=== PATIENT | female | born 1935 | race Caucasian/White ===

== ENCOUNTER 2017-08-26 13:35 | Emergency (ER) | payer MEDICARE, OTHER, MEDICAID ==
[2017-08-26 14:06] LABS: ADD MAN DIFF? NO
[2017-08-26 14:10] LABS: BASOPHILS % 0.4 % (0.0-2.0); EOSINOPHILS # 0.1 10^3/ul (0.0-0.5); EOSINOPHILS % 1.7 % (0.0-7.0); HEMATOCRIT 31.8 % (37.0-47.0); HEMOGLOBIN 10.4 g/dl (12.0-16.0); LYMPHOCYTES % 14.8 % (15.0-51.0); MEAN CORPUSCULAR HEMOGLOBIN 31.1 pg (29.0-33.0); MEAN CORPUSCULAR HGB CONC 32.7 g/dl (32.0-37.0); MEAN CORPUSCULAR VOLUME 95.2 fl (82.0-101.0); MEAN PLATELET VOLUME 11.6 fl (7.4-10.4); MONOCYTE # 0.9 10^3/ul (0.3-0.9); MONOCYTES % 13.6 % (0.0-11.0); NEUTROPHIL # 4.8 10^3/ul (1.6-7.5); NEUTROPHILS % 69.1 % (39.0-77.0); PLATELET COUNT 165 10^3/UL (140-415); RED BLOOD COUNT 3.34 10^6/ul (4.20-5.40); RED CELL DISTRIBUTION WIDTH 14.6 % (11.5-14.5)
[2017-08-26 14:10] LABS: WHITE BLOOD COUNT 6.9 10^3/ul (4.8-10.8)
[2017-08-26 14:30] LABS: ANION GAP 19 (8-16); BLOOD UREA NITROGEN 31 mg/dl (7-20); CALCIUM 8.4 mg/dl (8.4-10.2); CARBON DIOXIDE 32 mmol/L (21-31); CHLORIDE 94 mmol/L (97-110); CREATININE 3.24 mg/dl (0.44-1.00); GLUCOSE 333 mg/dl (70-220); INR 0.93; POTASSIUM 3.8 mmol/L (3.5-5.1); PROTIME 12.6 Sec (11.9-14.9); SODIUM 141 mmol/L (135-144)
[2017-08-26 14:31] LABS: PARTIAL THROMBOPLASTIN TIME 28.9 Sec (25.0-35.0)
[2017-08-26 14:39] LABS: TROPONIN-I 0.018 ng/ml (0.00-0.12)
== END 2017-08-26 17:18 | disposition home or self-care (01) ==
LOC: E/R 13:35
DX: R58 Hemorrhage, not elsewhere classified (principal); I10 Essential (primary) hypertension; E11.9 Type 2 diabetes mellitus without complications; Z79.4 Long term (current) use of insulin; Z79.82 Long term (current) use of aspirin
CPT/HCPCS: 36415; 71045; 80048; 84484; 85025; 85610; 85730; 86850; 86900; 86901; 93005; 99285-25

== ENCOUNTER 2018-10-23 11:37 | Inpatient (IN) | payer MEDICARE, OTHER ==
[2018-10-23 12:22] LABS: ADD MAN DIFF? NO
[2018-10-23] MEDS: SOD CHLORIDE 0.9% 500 ML IV (12:27)
[2018-10-23] MEDS: ONDANSETRON 4 MG INJ IV ×2 (12:27→15:01)
[2018-10-23 12:29] LABS: WHITE BLOOD COUNT 12.7 10^3/ul (4.8-10.8)
[2018-10-23 12:29] LABS: BASOPHIL # 0.1 10^3/ul (0.0-0.1); BASOPHILS % 0.6 % (0.0-2.0); EOSINOPHILS # 0.1 10^3/ul (0.0-0.5); EOSINOPHILS % 0.6 % (0.0-7.0); HEMATOCRIT 34.1 % (37.0-47.0); HEMOGLOBIN 10.4 g/dl (12.0-16.0); LYMPHOCYTES % 7.5 % (15.0-51.0); MEAN CORPUSCULAR HEMOGLOBIN 28.7 pg (29.0-33.0); MEAN CORPUSCULAR HGB CONC 30.5 g/dl (32.0-37.0); MEAN CORPUSCULAR VOLUME 93.9 fl (82.0-101.0); MEAN PLATELET VOLUME 10.4 fl (7.4-10.4); MONOCYTE # 1.3 10^3/ul (0.3-0.9); MONOCYTES % 10.3 % (0.0-11.0); NEUTROPHIL # 10.2 10^3/ul (1.6-7.5); NEUTROPHILS % 80.4 % (39.0-77.0); PLATELET COUNT 339 10^3/UL (140-415); RED BLOOD COUNT 3.63 10^6/ul (4.20-5.40); RED CELL DISTRIBUTION WIDTH 15.6 % (11.5-14.5)
[2018-10-23 12:47] LABS: ALANINE AMINOTRANSFERASE 16 IU/L (13-69); ALBUMIN 3.4 g/dl (3.3-4.9); ALBUMIN/GLOBULIN RATIO 0.82; ALKALINE PHOSPHATASE 73 IU/L (42-121); ASPARTATE AMINO TRANSFERASE 23 IU/L (15-46); BILIRUBIN,INDIRECT 0.3 mg/dl (0-1.1); BILIRUBIN,TOTAL 0.3 mg/dl (0.2-1.3); BLOOD UREA NITROGEN 57 mg/dl (7-20); CALCIUM 9.8 mg/dl (8.4-10.2); CHLORIDE 95 mmol/L (97-110); CREATININE 4.63 mg/dl (0.44-1.00); GLUCOSE 133 mg/dl (70-220); LIPASE 13 U/L (23-300); POTASSIUM 3.6 mmol/L (3.5-5.1); SODIUM 148 mmol/L (135-144); TOTAL PROTEIN 7.5 g/dl (6.1-8.1)
[2018-10-23 12:54] LABS: ANION GAP 15 (5-13); INR 1.04; PARTIAL THROMBOPLASTIN TIME 25.3 Sec (23.0-35.0); PROTIME 13.7 Sec (11.9-14.9); PT RATIO 1.1
[2018-10-23 13:02] LABS: CARBON DIOXIDE 38 mmol/L (21-31)
[2018-10-23] MEDS: PANTOPRAZOLE IV 80 MG in SOD CHLORIDE 0.9% 100 ML IVPB (13:13)
[2018-10-23] MEDS: PANTOPRAZOLE IV 80 MG in SOD CHLORIDE 0.9% 100 ML IV (13:13)
[2018-10-23 13:31] LABS: ADD UMIC YES; UR ASCORBIC ACID NEGATIVE (NEGATIVE); UR BACTERIA FEW /HPF (NONE SEEN); UR BILIRUBIN (Dip) 1+ mg/dL (NEGATIVE); UR BLOOD (Dip) 1+ mg/dL (NEGATIVE); UR CLARITY CLOUDY (CLEAR); UR COLOR AMBER (YELLOW); UR GLUCOSE (Dip) NEGATIVE (NEGATIVE); UR KETONES (Dip) TRACE mg/dL (NEGATIVE); UR LEUKOCYTE ESTERASE (Dip) 2+ Leu/ul (NEGATIVE); UR MUCUS FEW /HPF (NONE SEEN); UR NITRITE (Dip) NEGATIVE (NEGATIVE); UR RBC 1 /HPF (0-5); UR SPECIFIC GRAVITY (Dip) 1.018 (1.003-1.030); UR SQUAMOUS EPITHELIAL CELL FEW /HPF (FEW); UR TOTAL PROTEIN (Dip) 3+ mg/dl (NEGATIVE); UR UROBILINOGEN (Dip) 2+ mg/dL (NEGATIVE); UR WBC 90 /HPF (0-5)
[2018-10-23] MEDS: CEFEPIME 1GM/50 ML (PMX) 50 ML IVPB (13:59)
[2018-10-23] MEDS ORDERED: ACETAMINOPHEN 325 MG TAB PO (14:30)
[2018-10-23] MEDS ORDERED: ONDANSETRON 4 MG INJ IV ×2 (14:30→16:30)
[2018-10-23] MEDS: morphine 4 MG/ML VIAL IV (15:00)
[2018-10-23] MEDS: SOD CHLORIDE 0.9% 1,000 ML IV (16:03)
[2018-10-23] MEDS ORDERED: DEXTROSE 50% 50 ML SYRINGE IV ×2 (17:00)
[2018-10-23] MEDS ORDERED: GLUCAGON 1 MG INJ IM (17:00)
[2018-10-23] MEDS ORDERED: GLUCOSE GEL 15 GRAM TUBE PO ×2 (17:00)
[2018-10-23] MEDS ORDERED: GLUCOSE GEL 15 GRAM TUBE BUCCAL (17:00)
[2018-10-23] MEDS: INSULIN ASPART [NOVOLOG] 3 ML PEN SC ×2 (18:00→21:00)
[2018-10-24] MEDS: INSULIN ASPART [NOVOLOG] 3 ML PEN SC ×6 (01:00→21:46)
[2018-10-24] MEDS: PANTOPRAZOLE 40 MG INJ IV (05:36)
[2018-10-24 07:37] LABS: WHITE BLOOD COUNT 7.9 10^3/ul (4.8-10.8)
[2018-10-24 07:37] LABS: ABNORMAL IP MESSAGE 1; HEMATOCRIT 31.1 % (37.0-47.0); HEMOGLOBIN 9.2 g/dl (12.0-16.0); MEAN CORPUSCULAR HEMOGLOBIN 28.4 pg (29.0-33.0); MEAN CORPUSCULAR HGB CONC 29.6 g/dl (32.0-37.0); MEAN PLATELET VOLUME 10.4 fl (7.4-10.4); PLATELET COUNT 239 10^3/UL (140-415); RED BLOOD COUNT 3.24 10^6/ul (4.20-5.40); RED CELL DISTRIBUTION WIDTH 15.9 % (11.5-14.5)
[2018-10-24 07:43] LABS: ADD MAN DIFF? YES; POSITIVE DIFF @See below
[2018-10-24] MEDS ORDERED: PROPOFOL 20 ML (07:58)
[2018-10-24 07:59] LABS: ALANINE AMINOTRANSFERASE 25 IU/L (13-69); ALBUMIN/GLOBULIN RATIO 0.85; ALKALINE PHOSPHATASE 56 IU/L (42-121); ANION GAP 18 (5-13); ASPARTATE AMINO TRANSFERASE 24 IU/L (15-46); BILIRUBIN,INDIRECT 0.2 mg/dl (0-1.1); BILIRUBIN,TOTAL 0.2 mg/dl (0.2-1.3); BLOOD UREA NITROGEN 73 mg/dl (7-20); CALCIUM 8.5 mg/dl (8.4-10.2); CARBON DIOXIDE 28 mmol/L (21-31); CHLORIDE 102 mmol/L (97-110); CREATININE 5.19 mg/dl (0.44-1.00); GLUCOSE 157 mg/dl (70-220); POTASSIUM 4.2 mmol/L (3.5-5.1); SODIUM 148 mmol/L (135-144); TOTAL PROTEIN 6.5 g/dl (6.1-8.1)
[2018-10-24] MEDS ORDERED: LIDOCAINE 2% (SDV) 5 ML INJ (08:19)
[2018-10-24 10:14] LABS: ANISOCYTOSIS 1+ (0-0); BAND NEUTROPHILS #M 2.6 10^3/ul (0.0-0.6); BAND NEUTROPHILS % (M) 34 % (0-4); EOSINOPHILS % (M) 3 % (0-7); GIANT THROMBO% (M) 2 % (0-0); LYMPHOCYTES #M 0.6 10^3/ul (0.8-2.9); LYMPHOCYTES % (M) 8 % (15-51); MONOCYTE #M 0.4 10^3/ul (0.3-0.9); MONOCYTES % (M) 6 % (0-11); OVALOCYTES 1+ (0-0); PLATELET ESTIMATE NORMAL; PLATELET MORPHOLOGY COMMENT @See below; POIKILOCYTOSIS 1+ (0-0); POLYCHROMASIA 1+ (0-0); REACTIVE LYMPHOCYTES% (M) 1 % (0-0); SEGMENTED NEUTROPHILS (M) % 48 % (39-77); SMUDGE%M 8 % (0-0)
[2018-10-24 12:15] LABS: HEPATITIS B SURFACE ANTIGEN NEGATIVE (NEGATIVE)
[2018-10-24 12:32] LABS: HEPATITIS B SURFACE ANTIBODY POSITIVE (NEGATIVE)
[2018-10-25] MEDS: INSULIN ASPART [NOVOLOG] 3 ML PEN SC ×6 (01:00→21:15)
[2018-10-25] MEDS: PANTOPRAZOLE 40 MG INJ IV (05:22)
[2018-10-25 06:28] LABS: WHITE BLOOD COUNT 11.4 10^3/ul (4.8-10.8)
[2018-10-25 06:28] LABS: HEMATOCRIT 28.4 % (37.0-47.0); HEMOGLOBIN 8.6 g/dl (12.0-16.0); MEAN CORPUSCULAR HEMOGLOBIN 28.4 pg (29.0-33.0); MEAN CORPUSCULAR HGB CONC 30.3 g/dl (32.0-37.0); MEAN CORPUSCULAR VOLUME 93.7 fl (82.0-101.0); MEAN PLATELET VOLUME 10.6 fl (7.4-10.4); PLATELET COUNT 205 10^3/UL (140-415); RED BLOOD COUNT 3.03 10^6/ul (4.20-5.40); RED CELL DISTRIBUTION WIDTH 15.7 % (11.5-14.5)
[2018-10-25 06:52] LABS: ANION GAP 17 (5-13); BLOOD UREA NITROGEN 89 mg/dl (7-20); CALCIUM 8.1 mg/dl (8.4-10.2); CARBON DIOXIDE 29 mmol/L (21-31); CHLORIDE 99 mmol/L (97-110); CREATININE 6.15 mg/dl (0.44-1.00); GLUCOSE 179 mg/dl (70-220); MAGNESIUM 2.4 mg/dl (1.7-2.5); PHOSPHORUS 4.3 mg/dl (2.5-4.9); POTASSIUM 4.2 mmol/L (3.5-5.1); SODIUM 145 mmol/L (135-144)
[2018-10-25 07:03] LABS: ADD MAN DIFF? YES; POSITIVE DIFF @See below
[2018-10-25 07:44] LABS: ANISOCYTOSIS 1+ (0-0); BAND NEUTROPHILS #M 1.8 10^3/ul (0.0-0.6); BAND NEUTROPHILS % (M) 16 % (0-4); EOSINOPHILS % (M) 3 % (0-7); GIANT THROMBO% (M) 1 % (0-0); LYMPHOCYTES #M 1.9 10^3/ul (0.8-2.9); LYMPHOCYTES % (M) 17 % (15-51); MONOCYTE #M 0.6 10^3/ul (0.3-0.9); MONOCYTES % (M) 6 % (0-11); PLATELET ESTIMATE NORMAL; POLYCHROMASIA 1+ (0-0); SEG NEUT #M 6.8 10^3/ul (1.6-7.5); SEGMENTED NEUTROPHILS (M) % 58 % (39-77); SMUDGE%M 5 % (0-0)
[2018-10-25] MEDS: ACETAMINOPHEN 500 MG TAB PO (10:15)
[2018-10-25] MEDS: EPOETIN ALFA-EPBX (NON-ESRD 10,000 UNIT/ML VIAL SC (10:19)
[2018-10-25] MEDS: morphine 2 MG INJ IV (11:00)
[2018-10-26] MEDS: INSULIN ASPART [NOVOLOG] 3 ML PEN SC ×6 (01:00→20:23)
[2018-10-26 06:06] LABS: ADD MAN DIFF? NO
[2018-10-26 06:12] LABS: ABNORMAL IP MESSAGE 1; BASOPHIL # 0.1 10^3/ul (0.0-0.1); BASOPHILS % 0.7 % (0.0-2.0); EOSINOPHILS # 0.2 10^3/ul (0.0-0.5); EOSINOPHILS % 1.5 % (0.0-7.0); HEMATOCRIT 30.6 % (37.0-47.0); HEMOGLOBIN 9.3 g/dl (12.0-16.0); LYMPHOCYTES # 1.3 10^3/ul (0.8-2.9); MEAN CORPUSCULAR HEMOGLOBIN 29.2 pg (29.0-33.0); MEAN CORPUSCULAR HGB CONC 30.4 g/dl (32.0-37.0); MEAN CORPUSCULAR VOLUME 95.9 fl (82.0-101.0); MEAN PLATELET VOLUME 11.4 fl (7.4-10.4); MONOCYTE # 0.9 10^3/ul (0.3-0.9); NEUTROPHIL # 7.1 10^3/ul (1.6-7.5); NEUTROPHILS % 71.1 % (39.0-77.0); RED BLOOD COUNT 3.19 10^6/ul (4.20-5.40); RED CELL DISTRIBUTION WIDTH 15.9 % (11.5-14.5)
[2018-10-26 06:31] LABS: ANION GAP 10 (5-13); BLOOD UREA NITROGEN 45 mg/dl (7-20); CARBON DIOXIDE 27 mmol/L (21-31); CHLORIDE 102 mmol/L (97-110); GLUCOSE 169 mg/dl (70-220); MAGNESIUM 2.1 mg/dl (1.7-2.5); PHOSPHORUS 3.6 mg/dl (2.5-4.9); POTASSIUM 4.5 mmol/L (3.5-5.1); SODIUM 139 mmol/L (135-144)
[2018-10-26 07:05] LABS: POSITIVE DIFF @See below
[2018-10-26 07:13] LABS: PLATELET COUNT 143 10^3/UL (140-415)
[2018-10-26] MEDS: PANTOPRAZOLE 40 MG INJ IV ×2 (09:05→20:06)
[2018-10-26] MEDS: MAGNESIUM HYDROXIDE 30ML CUP PO (09:06)
[2018-10-26] MEDS: POLYETHYLENE GLYCOL 17 GM PACKET PO (09:06)
[2018-10-26] MEDS: DOCUSATE SODIUM 100 MG CAP PO (09:06)
[2018-10-26 17:08] LABS: CREATINE KINASE 323 IU/L (23-200)
[2018-10-26 17:21] LABS: CK INDEX 0.4; CK-MB 1.18 ng/ml (0.0-2.4)
[2018-10-26 17:25] LABS: TROPONIN-I 0.147 ng/ml (0.000-0.120)
[2018-10-26] MEDS: METOPROLOL 25 MG TAB PO (20:06)
[2018-10-27 01:24] LABS: CREATINE KINASE 232 IU/L (23-200)
[2018-10-27 01:34] LABS: CK INDEX 0.4; CK-MB 0.85 ng/ml (0.0-2.4)
[2018-10-27 01:38] LABS: TROPONIN-I 0.145 ng/ml (0.000-0.120)
[2018-10-27] MEDS: ACCU-CHEK XX (02:00)
[2018-10-27 07:19] LABS: CK-MB 0.73 ng/ml (0.0-2.4)
[2018-10-27 07:22] LABS: TROPONIN-I 0.135 ng/ml (0.000-0.120)
[2018-10-27 07:23] LABS: CK INDEX 0.4; CREATINE KINASE 186 IU/L (23-200)
[2018-10-27 07:32] LABS: CHOL/HDL RATIO 8.3 RATIO; HDL CHOLESTEROL 13 mg/dl (33-92); LDL CHOLESTEROL,CALCULATED 37 mg/dl; TRIGLYCERIDES 292 mg/dl (0-149)
[2018-10-27 07:32] LABS: CHOLESTEROL 108 mg/dl (100-200)
[2018-10-27] MEDS: PANTOPRAZOLE 40 MG INJ IV ×2 (08:43→22:12)
[2018-10-27] MEDS: DOCUSATE SODIUM 100 MG CAP PO (08:43)
[2018-10-27] MEDS: POLYETHYLENE GLYCOL 17 GM PACKET PO (08:43)
[2018-10-27] MEDS: METOPROLOL 25 MG TAB PO ×2 (08:43→21:00)
[2018-10-27] MEDS: INSULIN ASPART [NOVOLOG] 3 ML PEN SC ×4 (09:10→20:32)
[2018-10-27] MEDS: ACETAMINOPHEN 500 MG TAB PO ×2 (11:51→20:37)
[2018-10-27] MEDS: BISACODYL (EC) 5 MG TAB PO (11:51)
[2018-10-27] MEDS: BALSAM PERU/CASTOR OIL 60 GM TUBE TOP (15:22)
[2018-10-28] MEDS: ACCU-CHEK XX (01:59)
[2018-10-28] MEDS: DOCUSATE SODIUM 100 MG CAP PO (08:23)
[2018-10-28] MEDS: POLYETHYLENE GLYCOL 17 GM PACKET PO (08:24)
[2018-10-28] MEDS: BALSAM PERU/CASTOR OIL 60 GM TUBE TOP (08:25)
[2018-10-28] MEDS: METOPROLOL 25 MG TAB PO ×2 (08:26→20:26)
[2018-10-28] MEDS: INSULIN ASPART [NOVOLOG] 3 ML PEN SC ×4 (08:39→20:29)
[2018-10-28] MEDS: PANTOPRAZOLE 40 MG INJ IV (10:07)
[2018-10-28] MEDS ORDERED: BETAMET NA PHOS/AC(6 MG/ML) 5ML INJ INJ (19:00)
[2018-10-28] MEDS ORDERED: BUPIVACAINE 0.5%/EPI (SDV) 30 ML INJ INJ (19:00)
[2018-10-28] MEDS: ACETAMINOPHEN 500 MG TAB PO (20:33)
[2018-10-29] MEDS: ACCU-CHEK XX (01:55)
[2018-10-29] MEDS: PANTOPRAZOLE (EC) 40 MG TAB PO ×2 (06:03→17:24)
[2018-10-29] MEDS: INSULIN ASPART [NOVOLOG] 3 ML PEN SC ×3 (08:03→17:19)
[2018-10-29] MEDS: METOPROLOL 25 MG TAB PO (10:02)
[2018-10-29] MEDS: POLYETHYLENE GLYCOL 17 GM PACKET PO (10:02)
[2018-10-29] MEDS: DOCUSATE SODIUM 100 MG CAP PO (10:02)
[2018-10-29] MEDS: LUBIPROSTONE 24 MCG CAP PO (10:11)
[2018-10-29] MEDS: BALSAM PERU/CASTOR OIL 60 GM TUBE TOP (15:15)
[2018-10-29] MEDS: EPOETIN ALFA-EPBX (NON-ESRD 10,000 UNIT/ML VIAL SC (17:24)
== END 2018-10-29 19:10 | DRG 380 ==
LOC: E/R 11:37 → TEL 14:07
PROC: 0DB68ZX Excision of Stomach, Via Natural or Artificial Opening Endoscopic, Diagnostic (ICD-10-PCS; 2018-10-24 07:30)
PROC: 5A1D70Z Performance of Urinary Filtration, Intermittent, Less than 6 Hours Per Day (ICD-10-PCS; principal; 2018-10-24 07:44)
DX: K22.11 Ulcer of esophagus with bleeding (principal); N18.6 End stage renal disease; I50.23 Acute on chronic systolic (congestive) heart failure; N39.0 Urinary tract infection, site not specified; E87.0 Hyperosmolality and hypernatremia; I13.2 Hypertensive heart and chronic kidney disease with heart failure and with stage 5 chronic kidney disease, or end stage renal disease; I47.1 Supraventricular tachycardia; D62 Acute posthemorrhagic anemia; K92.0 Hematemesis; E11.22 Type 2 diabetes mellitus with diabetic chronic kidney disease; Z99.2 Dependence on renal dialysis; E78.5 Hyperlipidemia, unspecified; E03.9 Hypothyroidism, unspecified; J44.9 Chronic obstructive pulmonary disease, unspecified; D63.1 Anemia in chronic kidney disease; I25.10 Atherosclerotic heart disease of native coronary artery without angina pectoris; Z91.81 History of falling; R32 Unspecified urinary incontinence; Z86.73 Personal history of transient ischemic attack (TIA), and cerebral infarction without residual deficits; F03.90 Unspecified dementia, unspecified severity, without behavioral disturbance, psychotic disturbance, mood disturbance, and anxiety; Z95.2 Presence of prosthetic heart valve; K29.00 Acute gastritis without bleeding; I73.9 Peripheral vascular disease, unspecified; K20.9 Esophagitis, unspecified; M17.0 Bilateral primary osteoarthritis of knee
CPT/HCPCS: 71045; 71250; 72100; 72170; 72220; 73562-50; 80048; 80053; 80061; 81001; 82550; 82553; 82962; 83690; 83735; 84100; 84443; 84484; 85025; 85610; 85730; 86706; 87040-91; 87086; 87340; 88305; 88312; 90935; 93306; 96365; 96375; 96376; 97161; 97165; 97535; 99285-25

== ENCOUNTER 2018-11-02 01:50 | Inpatient (IN) | payer MEDICARE, OTHER ==
[2018-11-02] MEDS: PANTOPRAZOLE 40 MG INJ IV (02:31)
[2018-11-02 02:33] LABS: WHITE BLOOD COUNT 26.2 10^3/ul (4.8-10.8)
[2018-11-02 02:33] LABS: ABNORMAL IP MESSAGE 1; HEMATOCRIT 30.4 % (37.0-47.0); HEMOGLOBIN 9.3 g/dl (12.0-16.0); MEAN CORPUSCULAR HGB CONC 30.6 g/dl (32.0-37.0); MEAN CORPUSCULAR VOLUME 94.7 fl (82.0-101.0); MEAN PLATELET VOLUME 10.8 fl (7.4-10.4); PLATELET COUNT 309 10^3/UL (140-415); RED BLOOD COUNT 3.21 10^6/ul (4.20-5.40); RED CELL DISTRIBUTION WIDTH 16.4 % (11.5-14.5)
[2018-11-02 02:45] LABS: POSITIVE DIFF @See below
[2018-11-02 02:46] LABS: ADD MAN DIFF? YES
[2018-11-02 02:52] LABS: PROTIME 13.3 Sec (11.9-14.9)
[2018-11-02 02:53] LABS: PARTIAL THROMBOPLASTIN TIME 25.8 Sec (23.0-35.0)
[2018-11-02 02:55] LABS: ALANINE AMINOTRANSFERASE 17 IU/L (13-69); ALBUMIN 3.4 g/dl (3.3-4.9); ALKALINE PHOSPHATASE 117 IU/L (42-121); ANION GAP 15 (5-13); ASPARTATE AMINO TRANSFERASE 34 IU/L (15-46); BILIRUBIN,INDIRECT 0.2 mg/dl (0-1.1); BILIRUBIN,TOTAL 0.2 mg/dl (0.2-1.3); BLOOD UREA NITROGEN 55 mg/dl (7-20); CALCIUM 8.7 mg/dl (8.4-10.2); CARBON DIOXIDE 33 mmol/L (21-31); CHLORIDE 92 mmol/L (97-110); CREATININE 4.33 mg/dl (0.44-1.00); GLUCOSE 226 mg/dl (70-220); POTASSIUM 4.4 mmol/L (3.5-5.1); SODIUM 140 mmol/L (135-144); TOTAL PROTEIN 7.6 g/dl (6.1-8.1)
[2018-11-02 03:07] LABS: TROPONIN-I 0.124 ng/ml (0.000-0.120)
[2018-11-02 03:24] LABS: ANISOCYTOSIS 1+ (0-0); BAND NEUTROPHILS #M 0.7 10^3/ul (0.0-0.6); BAND NEUTROPHILS % (M) 3 % (0-4); BASOPHIL #M 0.2 10^3/ul (0.0-0.0); BASOPHILS % (M) 1 % (0-2); LYMPHOCYTES #M 2.6 10^3/ul (0.8-2.9); LYMPHOCYTES % (M) 10 % (15-51); MONOCYTE #M 1.5 10^3/ul (0.3-0.9); MONOCYTES % (M) 6 % (0-11); MYELOCYTES #M 0.5 10^3/ul (0.0-0.0); MYELOCYTES % (M) 2 % (0-0); PLATELET ESTIMATE NORMAL; PLATELET MORPHOLOGY COMMENT @See below; POIKILOCYTOSIS 1+ (0-0); POLYCHROMASIA 1+ (0-0); SEG NEUT #M 20.6 10^3/ul (1.6-7.5); SEGMENTED NEUTROPHILS (M) % 78 % (39-77); SMUDGE%M 1 % (0-0)
[2018-11-02] MEDS: PIPER-TAZO 3.375 GM IV (PMX) 100 ML IVPB (04:29)
[2018-11-02] MEDS: SODIUM CHLORIDE 0.9% 1L BAG IV* (04:29)
[2018-11-02] MEDS: FENTAnyl 50 MCG/ML VIAL IV ×2 (04:33→05:21)
[2018-11-02] MEDS ORDERED: ACETAMINOPHEN 325 MG TAB PO (06:30)
[2018-11-02] MEDS: ONDANSETRON 4 MG INJ IV (07:15)
[2018-11-02] MEDS ORDERED: PANTOPRAZOLE 40 MG INJ IV (08:30)
[2018-11-02 10:39] LABS: LACTIC ACID 2.6 mmol/L (0.5-2.0)
[2018-11-02] MEDS ORDERED: ONDANSETRON 4 MG INJ IV (11:30)
[2018-11-02] MEDS: morphine 2 MG INJ IV ×4 (11:51→21:57)
[2018-11-02] MEDS: DEXTROSE 5%-0.9% NACL 1,000 ML IV (11:52)
[2018-11-02] MEDS: FAMOTIDINE 20 MG INJ IV (11:52)
[2018-11-02] MEDS: metroNIDAZOLE 500 MG/NS (PMX) 100 ML IVPB (11:52)
[2018-11-02] MEDS: VANCOMYCIN 1 GM (PMX) 250 ML IVPB (14:14)
[2018-11-02 18:37] LABS: CREATINE KINASE 478 IU/L (23-200)
[2018-11-02 18:50] LABS: CK INDEX 1.4; CK-MB 6.62 ng/ml (0.0-2.4); TROPONIN-I 0.105 ng/ml (0.000-0.120)
[2018-11-02] MEDS: PIPER-TAZO 2.25 GM (PMX) 50 ML IVPB (19:32)
[2018-11-03] MEDS: DEXTROSE 5%-0.9% NACL 1,000 ML IV ×2 (01:48→16:06)
[2018-11-03] MEDS: morphine (DRIP) 100 MG/100 ML 100 ML IV ×2 (01:52→18:50)
[2018-11-03] MEDS: LORAZEPAM 2 MG INJ IV (09:22)
[2018-11-03] MEDS ORDERED: ACETAMINOPHEN 650 MG SUPP PR (18:00)
[2018-11-03] MEDS ORDERED: ATROPINE SULFATE 1% 5ML SL (18:00)
[2018-11-03] MEDS: SCOPOLAMINE 1.5 MG PATCH TRANSDERM (18:46)
[2018-11-03] MEDS ORDERED: LORAZEPAM 2 MG INJ IV (19:30)
== END 2018-11-04 00:47 | disposition expired | DRG 871 ==
LOC: MS1 08:25 → E/R 01:50 → MS1 06:14
DX: A41.9 Sepsis, unspecified organism (principal); K65.9 Peritonitis, unspecified; K63.1 Perforation of intestine (nontraumatic); N18.6 End stage renal disease; G93.41 Metabolic encephalopathy; I21.A1 Myocardial infarction type 2; K92.2 Gastrointestinal hemorrhage, unspecified; I13.2 Hypertensive heart and chronic kidney disease with heart failure and with stage 5 chronic kidney disease, or end stage renal disease; E46 Unspecified protein-calorie malnutrition; R64 Cachexia; I50.32 Chronic diastolic (congestive) heart failure; E86.0 Dehydration; D63.1 Anemia in chronic kidney disease; D49.0 Neoplasm of unspecified behavior of digestive system; E11.22 Type 2 diabetes mellitus with diabetic chronic kidney disease; E11.51 Type 2 diabetes mellitus with diabetic peripheral angiopathy without gangrene; E78.5 Hyperlipidemia, unspecified; F03.90 Unspecified dementia, unspecified severity, without behavioral disturbance, psychotic disturbance, mood disturbance, and anxiety; F32.9 Major depressive disorder, single episode, unspecified; G47.33 Obstructive sleep apnea (adult) (pediatric); L89.609 Pressure ulcer of unspecified heel, unspecified stage; L89.159 Pressure ulcer of sacral region, unspecified stage; R65.20 Severe sepsis without septic shock; R94.31 Abnormal electrocardiogram [ECG] [EKG]; R32 Unspecified urinary incontinence; Z66 Do not resuscitate; Z51.5 Encounter for palliative care; Z68.21 Body mass index [BMI] 21.0-21.9, adult; Z91.81 History of falling; Z87.891 Personal history of nicotine dependence; Z95.2 Presence of prosthetic heart valve; Z99.2 Dependence on renal dialysis; Z79.4 Long term (current) use of insulin; Z79.82 Long term (current) use of aspirin
CPT/HCPCS: 36415; 71045; 74176; 80053; 82550; 82553; 83605; 84484; 85025; 85610; 85730; 86850; 86900; 86901; 87040-91; 87081; 93005; 96365; 96375; 96376; 99285-25